=== PATIENT | female | born 1965 | race Caucasian/White ===

== ENCOUNTER 2020-01-13 18:24 | Emergency (ER) | payer MEDICAID ==
[2020-01-13 19:06] LABS: BASO % 0.1 % (0.0-1.0); HEMATOCRIT 48.4 % (36.0-47.0); HEMOGLOBIN 16.7 g/dl (12.0-15.5); LYMPH # 0.4 10^3/uL (1.5-5.0); LYMPH % 4.6 % (24.0-44.0); MEAN CORPUSCULAR HEMOGLOBIN 30.5 pg (27.0-33.0); MEAN CORPUSCULAR HGB CONC 34.5 g/dl (32.0-36.5); MEAN CORPUSCULAR VOLUME 88.3 fl (80.0-96.0); MONO # 0.7 10^3/uL (0.0-0.8); MONO % 8.6 % (0.0-5.0); NEUTROPHILS # 7.4 10^3/uL (1.5-8.5); NEUTROPHILS % 86.2 % (36.0-66.0); PLATELET COUNT, AUTOMATED 202 10^3/uL (150-450); RED BLOOD COUNT 5.48 10^6/uL (4.00-5.40); WHITE BLOOD COUNT 8.6 10^3/uL (4.0-10.0)
[2020-01-13 19:28] LABS: BLOOD UREA NITROGEN 7 MG/DL (7-18); CALCIUM LEVEL 9.2 MG/DL (8.5-10.1); CARBON DIOXIDE LEVEL 28 MEQ/L (21-32); CHLORIDE LEVEL 101 MEQ/L (98-107); CK-MB VALUE MASS < 1.0 NG/ML (<3.6); CPK CREATINE PHOSPHOKINASE 40 U/L (26-192); CREATININE FOR GFR 0.69 MG/DL (0.55-1.30); GLOMERULAR FILTRATION RATE > 60.0 (>51); GLUCOSE, FASTING 198 MG/DL (70-100); POTASSIUM SERUM 3.7 MEQ/L (3.5-5.1); SODIUM LEVEL 136 MEQ/L (136-145); TROPONIN I < 0.02 NG/ML (< 0.10)
[2020-01-13 19:34] LABS: INFLUENZA A AMPLIFICATION POSITIVE (NEGATIVE); INFLUENZA B AMPLIFICATION NEGATIVE (NEGATIVE)
[2020-01-13] MEDS ORDERED: IBUPROFEN 800 MG TAB PO ONE (19:45)
[2020-01-13] MEDS ORDERED: KETOROLAC 30 MG/ML VIAL (J1885) IV ONE (20:00)
[2020-01-13] MEDS ORDERED: ACETAMINOPHEN TAB 650MG DOSE (2X325MG) PO ONE (20:00)
[2020-01-13] MEDS ORDERED: METOCLOPRAMIDE INJ 10MG/2ML VIAL (J2765) IV ONE (20:00)
[2020-01-13] MEDS ORDERED: NS 500 ML IV ONE (20:00)
[2020-01-13] MEDS ORDERED: IPRATROPIUM 0.5MG/ALBUTEROL 2.5MG INH SOL UD 3ML (DUONEB)(J7620) NEB ONE (20:00)
--- NOTE | 2020-01-13 21:03 | ECGEPIP ---
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
[2020-01-13 21:45] VITALS: BP 102/54
[2020-01-13] MEDS ORDERED: REGL10TA6 PO (21:45)
[2020-01-13] MEDS ORDERED: OSEL75CA PO (21:45)
[2020-01-13] MEDS ORDERED: OSELTAMIVIR PHOSPHATE 75 MG CAP (TAMIFLU) PO ONE (21:45)
[2020-01-13] MEDS ORDERED: ALBUTEROL 90 MCG/ACT 8GM HFA INHALER INH ONE (21:45)
--- NOTE | 2020-01-14 08:07 | REP ---
No chest, 06:52 p.m., single AP view with the patient sitting: There are no comparisons. There is diffuse interstitial coarsening, acute versus chronic. There are no focal infiltrates or pleural effusions. Cardiac size is normal. The jon, mediastinum, skeletal structures are unremarkable except for a cervical spine stabilization plate. Impression: Interstitial coarsening, acute versus chronic. Electronically Signed by Keith Ferreira MD 01/14/2020 07:58 A
--- NOTE | 2020-01-14 11:15 | ED PDOC ---
Post-Departure Follow-Up dr allen faxed formal report of cxr fo rfu Montse Bobby MD Jan 14, 2020 11:15
== END 2020-01-13 22:12 | disposition home or self-care (01) ==
LOC: M ED 18:24
DX: J09.X2 Influenza due to identified novel influenza A virus with other respiratory manifestations (principal); E11.9 Type 2 diabetes mellitus without complications; F17.211 Nicotine dependence, cigarettes, in remission; Z88.1 Allergy status to other antibiotic agents
CPT/HCPCS: 71045; 80048; 82550; 82553; 85025; 87040; 87502; 93005; 93041; 94760; 96374; 96375; 99285; J1885; J2765

== ENCOUNTER → 2020-02-22 | Outpatient (CLI) | payer MEDICAID ==
[~2020-02-22] MED LIST: OSEL75CA PO; REGL10TA6 PO
--- NOTE | 2020-02-22 15:48 | REP ---
Chest x-ray: Two views. History: Cough. Comparison chest x-ray: January 13, 2020. Findings: The patient is status post lower cervical spine fusion. The lungs are symmetrically aerated and clear. Pleural angles are sharp. There are degenerative disc changes in the thoracic spine. Clips are noted in the right upper quadrant. Pulmonary vasculature is not increased. No infiltrate is seen. Impression: No acute disease. Status post lower cervical spine fusion and prior cholecystectomy. Electronically Signed by Manolo Mireles MD 02/22/2020 03:40 P
[2020-02-22 16:49] LABS: HEMOGLOBIN A1c 6.8 %
[2020-02-22 17:03] LABS: ALBUMIN 3.6 GM/DL (3.2-5.2); ALT/SGPT 18 U/L (12-78); BILIRUBIN,TOTAL 0.4 MG/DL (0.2-1.0); BLOOD UREA NITROGEN 8 MG/DL (7-18); CALCIUM LEVEL 9.6 MG/DL (8.5-10.1); CARBON DIOXIDE LEVEL 29 MEQ/L (21-32); CHLORIDE LEVEL 104 MEQ/L (98-107); CHOLESTEROL LEVEL 269 MG/DL (<200); CHOLESTEROL RISK RATIO 5.075 (<5); CREATININE FOR GFR 0.65 MG/DL (0.55-1.30); GLOMERULAR FILTRATION RATE > 60.0 (>51); GLUCOSE, FASTING 99 MG/DL (70-100); HDL CHOLESTEROL 53 MG/DL (>40); LDL CHOLESTEROL 181 MG/DL (<100); NON-HDL-C 216 MG/DL; SODIUM LEVEL 136 MEQ/L (136-145); THYROID STIMULATING HORMONE 0.628 uIU/ML (0.358-3.740); TOTAL PROTEIN 7.5 GM/DL (6.4-8.2); TRIGLYCERIDES LEVEL 174 MG/DL (<150)
== END ==
LOC: M WUC 15:03
PROVIDERS: ATTEND Internal Medicine
DX: Z00.00 Encounter for general adult medical examination without abnormal findings (principal); E78.5 Hyperlipidemia, unspecified; J44.9 Chronic obstructive pulmonary disease, unspecified; E11.9 Type 2 diabetes mellitus without complications; R05 Cough

== ENCOUNTER → 2020-07-03 | Outpatient (CLI) | payer OTHER ==
--- NOTE | 2020-09-01 07:59 | REP ---
CHEST X-RAY: 2-VIEWS COMPARISON: 02/22/20 FINDINGS: 2-views of the chest are performed. There is no acute infection. The heart is normal in size. There is mild calcification of the thoracic aorta. The mediastinal silhouette is unchanged. Metallic plate and screws are seen in the lower cervical spine. There are mild degenerative changes in the spine. IMPRESSION: No active pulmonary disease. MTDD
== END ==
LOC: M WUC 15:55
PROVIDERS: ATTEND Internal Medicine
DX: J44.1 Chronic obstructive pulmonary disease with (acute) exacerbation (principal)

== ENCOUNTER → 2021-05-11 | Outpatient (CLI) | payer OTHER ==
[2021-05-11 18:22] LABS: ALBUMIN 3.7 GM/DL (3.2-5.2); ALT/SGPT 25 U/L (12-78); BILIRUBIN,TOTAL 0.3 MG/DL (0.2-1.0); BLOOD UREA NITROGEN 10 MG/DL (7-18); CALCIUM LEVEL 9.6 MG/DL (8.5-10.1); CARBON DIOXIDE LEVEL 24 MEQ/L (21-32); CHLORIDE LEVEL 104 MEQ/L (98-107); CREATININE FOR GFR 0.81 MG/DL (0.55-1.30); GLOMERULAR FILTRATION RATE > 60.0 (>51); GLUCOSE, FASTING 155 MG/DL (70-100); POTASSIUM SERUM 4.2 MEQ/L (3.5-5.1); SODIUM LEVEL 138 MEQ/L (136-145); TOTAL PROTEIN 7.3 GM/DL (6.4-8.2)
== END ==
LOC: M WUC 14:19
PROVIDERS: ATTEND Internal Medicine
DX: E11.9 Type 2 diabetes mellitus without complications (principal)

== ENCOUNTER → 2021-07-18 | Outpatient (CLI) | payer OTHER ==
[~2021-07-18] MED LIST changes: +ATOR1TAB21 PO; +FLUT1BLS IH; +FLUTISP; +GABA600T4 PO; +JANU100T PO; +LINZ290C PO; +METF850T4 PO; +PROAAER10 INH; +TRAZ-189 PO; +VENL75TA2 PO; +ZOFR4TAB16 PO
== END ==
LOC: M LABSMTC 09:22
PROVIDERS: ATTEND Anesthesiology
DX: Z01.812 Encounter for preprocedural laboratory examination (principal); Z20.822 Contact with and (suspected) exposure to COVID-19

== ENCOUNTER 2021-07-23 06:46 | Day surgery (SDC) | payer OTHER ==
[~2021-07-23] VITALS: Ht 162.6 cm; Wt 90.3 kg
[~2021-07-23 06:46] MED LIST changes: +NS 1,000 ML IV ONE
[2021-07-23] MEDS ORDERED: LIDOCAINE 2% 100MG/5ML SDV (FOR ANES.) As Ordered ONE (07:22)
[2021-07-23] MEDS ORDERED: propofoL 200 MG/20 ML VIAL As Ordered ONE ×2 (07:22→08:31)
--- NOTE | 2021-07-23 08:14 | ROOR ---
Patient Name: Olamide Galloway Procedure Date: 07/23/2021 8:01 AM Date of : 1965 Age: 55 Room: [facility] Gender: Female Note Status: Finalized Procedure: Upper GI endoscopy Indications: Suspected gastroparesis, Eructation, Regurgitation Providers: Inder Patel MD Referring MD: CJ BAUTISTA MD Requesting Provider: Medicines: Monitored Anesthesia Care Complications: No immediate complications. Procedure: Pre-Anesthesia Assessment: - The heart rate, respiratory rate, oxygen saturations, blood pressure, adequacy of pulmonary ventilation, and response to care were monitored throughout the procedure. The Endoscope was introduced through the mouth, and advanced to the second part of duodenum. The upper GI endoscopy was accomplished without difficulty. The patient tolerated the procedure well. Findings: Very small (insignificant) Hiatal Hernia. The exam was otherwise without abnormality. Impression: - Very small (insignificant) Hiatal Hernia. - The examination was otherwise normal. - No specimens collected. Recommendation: - Gastroparesis diet: - Eat smaller, more frequent meals throughout the day. - Low fat diet. - Liquid/soft foods are tolerated better than solid foods. - Low fiber/well cooked vegetables are tolerated better than high fiber/fibrous foods/raw vegetables. - Avoid medications that inhibit gastric/intestinal motility such as narcotic medications. Procedure Code(s): --- Professional --- 01791, Esophagogastroduodenoscopy, flexible, transoral; diagnostic, including collection of specimen(s) by brushing or washing, when performed (separate procedure) Diagnosis Code(s): --- Professional --- R11.10, Vomiting, unspecified R14.2, Eructation CPT copyright 2019 [employer]. All rights reserved. The codes documented in this report are preliminary and upon babbitt spinner review may be revised to meet current compliance requirements. Inder Patel MD Inder Patel MD 07/23/2021 8:13:25 AM Electronically signed by Inder Patel MD Number of Addenda: 0 Note Initiated On: 07/23/2021 8:01 AM Estimated Blood Loss: Estimated blood loss: none.
--- NOTE | 2021-07-23 08:43 | ROOR ---
Patient Name: Olamide Galloway Procedure Date: 07/23/2021 8:01 AM Date of : 1965 Age: 55 Room: [facility] Gender: Female Note Status: Finalized Procedure: Colonoscopy Indications: High risk colon cancer surveillance: Personal history of colonic polyps Providers: Inder Patel MD Referring MD: CJ BAUTISTA MD Requesting Provider: Medicines: Monitored Anesthesia Care Complications: No immediate complications. Procedure: Pre-Anesthesia Assessment: - The heart rate, respiratory rate, oxygen saturations, blood pressure, adequacy of pulmonary ventilation, and response to care were monitored throughout the procedure. The Colonoscope was introduced through the anus and advanced to the terminal ileum, with identification of the appendiceal orifice and IC valve. The colonoscopy was performed without difficulty. The quality of the bowel preparation was fair. Findings: The perianal and digital rectal examinations were normal. A 5 mm polyp was found in the transverse colon. The polyp was sessile. The polyp was removed with a cold snare. Resection and retrieval were complete. Mild sigmoid diverticulosis and small internal hemorrhoids. Impression: - Preparation of the colon was fair. - One 5 mm polyp in the transverse colon, removed with a cold snare. Resected and retrieved. - Mild sigmoid diverticulosis and small internal hemorrhoids. Recommendation: - Repeat colonoscopy in 3 years for surveillance and for slightly suboptimal prep in sigmoid area. Procedure Code(s): --- Professional --- 81971, Colonoscopy, flexible; with removal of tumor(s), polyp(s), or other lesion(s) by snare technique Diagnosis Code(s): --- Professional --- K63.5, Polyp of colon Z86.010, Personal history of colonic polyps CPT copyright 2019 [employer]. All rights reserved. The codes documented in this report are preliminary and upon web feeder review may be revised to meet current compliance requirements. Inder Patel MD Inder Patel MD 07/23/2021 8:42:58 AM Electronically signed by Inder Patel MD Number of Addenda: 0 Note Initiated On: 07/23/2021 8:01 AM Estimated Blood Loss: Estimated blood loss: none.
[2021-07-23 09:03] VITALS: BP 105/55
== END 2021-07-23 09:06 | disposition home or self-care (01) ==
LOC: M OPP 06:46
PROVIDERS: ATTEND Internal Medicine Gastroenterology
DX: Z12.11 Encounter for screening for malignant neoplasm of colon (principal); Z86.010 Personal history of colon polyps; D12.3 Benign neoplasm of transverse colon; K57.30 Diverticulosis of large intestine without perforation or abscess without bleeding; K64.8 Other hemorrhoids; R11.10 Vomiting, unspecified; R14.2 Eructation; Z79.84 Long term (current) use of oral hypoglycemic drugs; Z79.899 Other long term (current) drug therapy; F17.210 Nicotine dependence, cigarettes, uncomplicated

== ENCOUNTER → 2021-10-12 | Outpatient (CLI) | payer OTHER ==
[~2021-10-12] MED LIST changes: -NS 1,000 ML IV ONE
--- NOTE | 2021-10-12 16:14 | REP ---
INDICATION: NEOPLASM OF UNCERTAIN BEHAVIOR OF THYROID GLAND. COMPARISON: 05/14/2020. TECHNIQUE: Real-time sonographic evaluation of thyroid performed. FINDINGS: A few scattered cysts are seen in the right lobe of the thyroid, the largest measures 6 x 5 x 4 mm. In the left isthmus there is an oval hypoechoic nodule which measures 6 x 4 x 3 mm, not significantly changed. A cyst in the left lobe measures 7 x 4 x 7 mm. An oval hypoechoic nodular area in the mid to lower left lobe measures 1.6 x 0.5 x 1.3 cm. This is essentially a unchanged. Other ill-defined hypoechoic areas in the left lobe appear similar to the prior exam. IMPRESSION: Essentially stable exam. <Electronically signed by Keith Jordan > 10/12/21 [id number]
== END ==
LOC: M WHC 15:12
PROVIDERS: ATTEND Internal Medicine
DX: E04.1 Nontoxic single thyroid nodule (principal)

== ENCOUNTER → 2021-11-17 | Outpatient (CLI) | payer OTHER | LOC: M WHC 15:56 | PROVIDERS: ATTEND Internal Medicine | DX: Z12.31 Encounter for screening mammogram for malignant neoplasm of breast (principal) ==

== ENCOUNTER → 2021-11-20 | Outpatient (REF) | LOC: M LABSMTC 09:01 | PROVIDERS: ATTEND Pediatrics | DX: Z11.52 Encounter for screening for COVID-19 (principal) ==

== ENCOUNTER 2022-06-16 13:03 | Emergency (ER) | payer OTHER ==
[~2022-06-16] VITALS: Ht 165.1 cm; Wt 86.4 kg
[~2022-06-16 13:03] MED LIST changes: -FLUT1BLS IH; +FLUT1BLS INH; -FLUTISP; +FLUTISP NARES
[2022-06-16] MEDS ORDERED: DULO1CAP6 PO (13:31)
[2022-06-16 14:37] LABS: BASO # 0.1 10^3/uL (0.0-0.2); BASO % 0.5 % (0.0-1.0); EOS # 0.2 10^3/uL (0.0-0.5); EOS % 1.8 % (0.0-3.0); HEMATOCRIT 46.1 % (36.0-47.0); HEMOGLOBIN 15.4 g/dl (12.0-15.5); LYMPH # 1.8 10^3/uL (1.5-5.0); LYMPH % 17.6 % (24.0-44.0); MEAN CORPUSCULAR HEMOGLOBIN 29.4 pg (27.0-33.0); MEAN CORPUSCULAR HGB CONC 33.4 g/dl (32.0-36.5); MEAN CORPUSCULAR VOLUME 88.1 fl (80.0-96.0); MONO # 0.5 10^3/uL (0.0-0.8); NEUTROPHILS # 7.6 10^3/uL (1.5-8.5); NEUTROPHILS % 74.8 % (36.0-66.0); PLATELET COUNT, AUTOMATED 323 10^3/uL (150-450); RED BLOOD COUNT 5.23 10^6/uL (4.00-5.40); WHITE BLOOD COUNT 10.2 10^3/uL (4.0-10.0)
[2022-06-16] MEDS ORDERED: NS 1,000 ML IV ONE (15:00)
[2022-06-16] MEDS ORDERED: MORPHINE 4 MG/ML 1ML VIAL/SYRINGE IV ONE (15:05)
[2022-06-16] MEDS ORDERED: ONDANSETRON 4MG 2ML VIAL IV ONE (15:05)
[2022-06-16 15:10] LABS: ALBUMIN 3.7 GM/DL (3.2-5.2); ALT/SGPT 16 U/L (12-78); BILIRUBIN,DIRECT < 0.1 MG/DL (0.0-0.2); BILIRUBIN,TOTAL 0.3 MG/DL (0.2-1.0); BLOOD UREA NITROGEN 10 MG/DL (7-18); CALCIUM LEVEL 10.2 MG/DL (8.5-10.1); CARBON DIOXIDE LEVEL 26 MEQ/L (21-32); CHLORIDE LEVEL 105 MEQ/L (98-107); CREATININE FOR GFR 0.97 MG/DL (0.55-1.30); GLOMERULAR FILTRATION RATE > 60.0 (>51); GLUCOSE, FASTING 109 MG/DL (70-100); LIPASE 389 U/L (73-393); POTASSIUM SERUM 4.7 MEQ/L (3.5-5.1); SODIUM LEVEL 139 MEQ/L (136-145); TOTAL PROTEIN 7.8 GM/DL (6.4-8.2)
[2022-06-16] MEDS ORDERED: ISOVUE-370 76% 100ML VIAL As Ordered ONE (15:43)
[2022-06-16] MEDS ORDERED: PROM25TA12 PO (17:54)
[2022-06-16] MEDS ORDERED: DICY10CA13 PO (17:54)
[2022-06-16] MEDS ORDERED: PROMETHAZINE 25 MG TAB PO ONE (17:55)
[2022-06-16] MEDS ORDERED: DICYCLOMINE 10 MG CAP PO ONE (17:55)
[2022-06-16 18:04] VITALS: BP 138/66
== END 2022-06-16 19:08 | disposition home or self-care (01) ==
LOC: M ED 13:03
DX: K52.9 Noninfective gastroenteritis and colitis, unspecified (principal); E11.9 Type 2 diabetes mellitus without complications; Z87.19 Personal history of other diseases of the digestive system; Z79.899 Other long term (current) drug therapy; Z79.84 Long term (current) use of oral hypoglycemic drugs
CPT/HCPCS: 74177; 80048; 80076; 81001; 83690; 85025; 96361; 96374; 96375; 99284; J2270; J2405; Q9967

== ENCOUNTER 2022-06-20 13:46 | Inpatient (IN) | payer OTHER ==
[~2022-06-20 13:46] MED LIST changes: +ASPIRIN 81 MG CHEW TABLET PO SCH; +DICY10CA13 PO; +DULO1CAP6 PO; +PROM25TA12 PO
[2022-06-20] MEDS ORDERED: ISOVUE-370 76% 100ML VIAL As Ordered ONE (14:11)
[2022-06-20 14:17] LABS: BASO # 0.1 10^3/uL (0.0-0.2); BASO % 0.6 % (0.0-1.0); EOS # 0.2 10^3/uL (0.0-0.5); EOS % 2.4 % (0.0-3.0); HEMATOCRIT 46.6 % (36.0-47.0); HEMOGLOBIN 15.8 g/dl (12.0-15.5); LYMPH # 2.4 10^3/uL (1.5-5.0); LYMPH % 23.8 % (24.0-44.0); MEAN CORPUSCULAR HEMOGLOBIN 29.8 pg (27.0-33.0); MEAN CORPUSCULAR HGB CONC 33.9 g/dl (32.0-36.5); MEAN CORPUSCULAR VOLUME 87.8 fl (80.0-96.0); MONO # 0.7 10^3/uL (0.0-0.8); MONO % 6.7 % (2.0-8.0); NEUTROPHILS # 6.7 10^3/uL (1.5-8.5); NEUTROPHILS % 66.2 % (36.0-66.0); PLATELET COUNT, AUTOMATED 304 10^3/uL (150-450); RED BLOOD COUNT 5.31 10^6/uL (4.00-5.40); WHITE BLOOD COUNT 10.1 10^3/uL (4.0-10.0)
[2022-06-20 14:20] VITALS: BP 140/74
[2022-06-20 14:28] LABS: PARTIAL THROMBOPLASTIN TIME 27.9 SECONDS (25.9-37.0)
[2022-06-20] MEDS ORDERED: ATOR40TA75 PO (14:28)
[2022-06-20 14:30] VITALS: BP 125/72
[2022-06-20 14:34] LABS: CK-MB VALUE MASS < 1.0 NG/ML (<3.6); CPK CREATINE PHOSPHOKINASE 37 U/L (26-192)
[2022-06-20 14:45] VITALS: BP_SYST 129; BP_SYST 76; BP_DIAS 76
[2022-06-20 15:00] VITALS: BP 130/76
[2022-06-20] MEDS ORDERED: PERCOCET 5MG/325MG TAB PO ONE (15:05)
[2022-06-20] MEDS ORDERED: ONDANSETRON 4MG 2ML VIAL IV ONE (15:05)
[2022-06-20 15:11] LABS: INR 0.96; PROTHROMBIN TIME 13.1 SECONDS (12.7-14.5)
[2022-06-20 15:14] LABS: RSV AMPLIFICATION NEGATIVE (NEGATIVE)
[2022-06-20 15:15] VITALS: BP 134/75
[2022-06-20] MEDS ORDERED: DEXTROSE 50% 50 ML SYRINGE IV PRN (15:55)
[2022-06-20] MEDS ORDERED: GLUCOSE 4GM CHEW TABLET PO PRN (15:55)
[2022-06-20] MEDS ORDERED: GLUCAGON INJ 1MG VIAL SC PRN (15:55)
[2022-06-20] MEDS ORDERED: NICOTINE 14 MG/24 HR TRANSDERMAL TD ONE (15:55)
[2022-06-20 16:20] LABS: HEMOGLOBIN A1c 6.4 %
[2022-06-20] MEDS ORDERED: ONDA8TAB8 PO (16:42)
[2022-06-20] MEDS ORDERED: HOME MED LIST COMPLETE! XX SCH (16:45)
[2022-06-20] MEDS ORDERED: INSULIN LISPRO (NovoLOG) PER UNIT SC SCH ×2 (17:30→21:00)
[2022-06-20 18:31] VITALS: BP 153/86
[2022-06-21] MEDS ORDERED: CLOPIDOGREL 75 MG TAB PO SCH (09:00)
== END 2022-06-20 20:17 | disposition left against medical advice (07) | DRG 47 ==
LOC: EDBD 13:46 → M ED 13:46 → M ED INP 15:52 → ENRESERV 16:07 → M PCU 20:16
PROVIDERS: ADMIT Family Medicine; ATTEND Family Medicine
DX: G45.9 Transient cerebral ischemic attack, unspecified (principal); E11.43 Type 2 diabetes mellitus with diabetic autonomic (poly)neuropathy; K31.84 Gastroparesis; E78.5 Hyperlipidemia, unspecified; M54.2 Cervicalgia; J45.909 Unspecified asthma, uncomplicated; F41.9 Anxiety disorder, unspecified; F32.A Depression, unspecified; G43.909 Migraine, unspecified, not intractable, without status migrainosus; F17.210 Nicotine dependence, cigarettes, uncomplicated; Z90.49 Acquired absence of other specified parts of digestive tract; Z79.84 Long term (current) use of oral hypoglycemic drugs; Z79.899 Other long term (current) drug therapy

== ENCOUNTER → 2022-10-19 | Outpatient (CLI) | payer OTHER ==
[~2022-10-19] MED LIST changes: -ASPIRIN 81 MG CHEW TABLET PO SCH; +ATOR40TA75 PO; +ONDA8TAB8 PO
[2022-10-19 19:36] LABS: CREATININE FOR GFR 0.86 MG/DL (0.55-1.30); GLOMERULAR FILTRATION RATE > 60.0 (>51)
[2022-10-19 19:40] LABS: BLOOD UREA NITROGEN 11 MG/DL (9-23)
== END ==
LOC: M WUC 15:14
PROVIDERS: ATTEND Psychiatry & Neurology Neurology
DX: I10 Essential (primary) hypertension (principal)

== ENCOUNTER → 2022-10-19 | Outpatient (CLI) | payer OTHER ==
[2022-10-19 19:35] LABS: CHLORIDE LEVEL 99 MMOL/L (98-107); POTASSIUM SERUM 4.4 MMOL/L (3.5-5.1); SODIUM LEVEL 136 MMOL/L (136-145)
[2022-10-19 19:36] LABS: ALBUMIN 3.5 G/DL (3.2-5.2); CARBON DIOXIDE LEVEL 28 MMOL/L (20-31)
[2022-10-19 19:38] LABS: HEMOGLOBIN A1c 5.7 % (4.0-6.0)
[2022-10-19 19:41] LABS: BLOOD UREA NITROGEN 11 MG/DL (9-23); CALCIUM LEVEL 9.4 MG/DL (8.5-10.1); GLUCOSE, FASTING 110 MG/DL (60-100); TRIGLYCERIDES LEVEL 144 MG/DL (<150)
[2022-10-19 19:43] LABS: ALT/SGPT 11 U/L (7.0-40); BILIRUBIN,TOTAL 0.2 MG/DL (0.3-1.2); CHOLESTEROL LEVEL 154 MG/DL (<200); CHOLESTEROL RISK RATIO 3.13 (<5); CREATININE FOR GFR 0.84 MG/DL (0.55-1.30); GLOMERULAR FILTRATION RATE > 60.0 (>51); HDL CHOLESTEROL 49.2 MG/DL (>40); NON-HDL-C 105 MG/DL; TOTAL PROTEIN 7.3 G/DL (5.7-8.2)
== END ==
LOC: M WUC 15:10
PROVIDERS: ATTEND Internal Medicine
DX: E78.5 Hyperlipidemia, unspecified (principal); E11.9 Type 2 diabetes mellitus without complications

== ENCOUNTER → 2022-12-08 | Outpatient (CLI) | payer OTHER | LOC: M PAIN 15:00 | PROVIDERS: ATTEND Anesthesiology | DX: M54.2 Cervicalgia (principal); M79.10 Myalgia, unspecified site; R42 Dizziness and giddiness; M79.18 Myalgia, other site; M96.1 Postlaminectomy syndrome, not elsewhere classified; E11.9 Type 2 diabetes mellitus without complications; F17.200 Nicotine dependence, unspecified, uncomplicated; Z79.84 Long term (current) use of oral hypoglycemic drugs; Z79.899 Other long term (current) drug therapy ==

== ENCOUNTER → 2023-01-18 | Outpatient (CLI) | payer OTHER ==
[2023-01-18 19:44] LABS: ALBUMIN 3.6 G/DL (3.2-5.2); ALKALINE PHOSPHATASE 76 U/L (46-116); ALT/SGPT 13 U/L (7.0-40); AST/SGOT 16 U/L (<34); BILIRUBIN,TOTAL 0.2 MG/DL (0.3-1.2); BLOOD UREA NITROGEN 10 MG/DL (9-23); CALCIUM LEVEL 9.3 MG/DL (8.5-10.1); CARBON DIOXIDE LEVEL 30 MMOL/L (20-31); CHLORIDE LEVEL 103 MMOL/L (98-107); CHOLESTEROL LEVEL 150 MG/DL (<200); CHOLESTEROL RISK RATIO 3.28 (<5); CREATININE FOR GFR 0.77 MG/DL (0.55-1.30); GLOMERULAR FILTRATION RATE > 60.0 (>51); GLUCOSE, FASTING 113 MG/DL (60-100); HDL CHOLESTEROL 45.7 MG/DL (>40); LDL CHOLESTEROL 66.9 MG/DL (<100); NON-HDL-C 104 MG/DL; POTASSIUM SERUM 4.5 MMOL/L (3.5-5.1); SODIUM LEVEL 138 MMOL/L (136-145); TOTAL PROTEIN 7.2 G/DL (5.7-8.2); TRIGLYCERIDES LEVEL 187 MG/DL (<150)
[2023-01-18 19:58] LABS: CREATININE, URINE 313.7 MG/DL; MAU/CREAT RATIO 33.7 MCG/MG (0.0-30.0)
[2023-01-18 20:28] LABS: HEMOGLOBIN A1c 7.5 % (4.0-6.0)
== END ==
LOC: M WUC 15:32
PROVIDERS: ATTEND Internal Medicine
DX: E78.5 Hyperlipidemia, unspecified (principal); E11.9 Type 2 diabetes mellitus without complications

== ENCOUNTER → 2024-04-10 | Outpatient (CLI) | payer OTHER ==
[~2024-04-10] MED LIST changes: +DICY-61 PO; -DICY10CA13 PO
[2024-04-10 20:37] LABS: HEMOGLOBIN A1c 8.3 % (4.0-6.0)
[2024-04-10 20:48] LABS: CREATININE, URINE 168.6 MG/DL
[2024-04-10 20:51] LABS: ALBUMIN 3.7 G/DL (3.2-5.2); ALKALINE PHOSPHATASE 77 U/L (46-116); ALT/SGPT 10 U/L (7.0-40); AST/SGOT 10 U/L (<34); BILIRUBIN,TOTAL 0.2 MG/DL (0.3-1.2); BLOOD UREA NITROGEN 7 MG/DL (9-23); CALCIUM LEVEL 9.6 MG/DL (8.5-10.1); CARBON DIOXIDE LEVEL 28 MMOL/L (20-31); CHLORIDE LEVEL 102 MMOL/L (98-107); CHOLESTEROL LEVEL 148 MG/DL (<200); CHOLESTEROL RISK RATIO 3.06 (<5); CREATININE FOR GFR 0.73 MG/DL (0.55-1.30); GLOMERULAR FILTRATION RATE > 60.0 (>51); GLUCOSE, FASTING 127 MG/DL (60-100); HDL CHOLESTEROL 48.3 MG/DL (>40); LDL CHOLESTEROL 61.1 MG/DL (<100); NON-HDL-C 99.7 MG/DL; POTASSIUM SERUM 4.5 MMOL/L (3.5-5.1); SODIUM LEVEL 135 MMOL/L (136-145); THYROID STIMULATING HORMONE 0.953 uIU/ML (0.55-4.78); TOTAL PROTEIN 7.5 G/DL (5.7-8.2); TRIGLYCERIDES LEVEL 193 MG/DL (<150)
== END ==
LOC: M WUC 15:37
PROVIDERS: ATTEND Internal Medicine
DX: E78.5 Hyperlipidemia, unspecified (principal); E11.9 Type 2 diabetes mellitus without complications

== ENCOUNTER → 2025-01-16 | Outpatient (CLI) | payer BC ==
[~2025-01-16] MED LIST changes: +GABA-1490 PO; -GABA600T4 PO; +ONDA-284 PO; -ONDA8TAB8 PO
[2025-01-16 14:00] LABS: HEMOGLOBIN A1c 6.5 % (4.0-6.0)
[2025-01-16 14:27] LABS: ALBUMIN 3.9 G/DL (3.2-5.2); ALKALINE PHOSPHATASE 63 U/L (35-104); ALT/SGPT 12 U/L (7.0-40); AST/SGOT 18 U/L (<34); BILIRUBIN,TOTAL 0.2 MG/DL (0.3-1.2); BLOOD UREA NITROGEN 11 MG/DL (9-23); CALCIUM LEVEL 9.8 MG/DL (8.5-10.1); CARBON DIOXIDE LEVEL 27 MMOL/L (20-31); CHLORIDE LEVEL 103 MMOL/L (98-107); CHOLESTEROL LEVEL 139 MG/DL (<200); CHOLESTEROL RISK RATIO 2.95 (<5); GLOMERULAR FILTRATION RATE > 60.0 (>51); GLUCOSE, FASTING 187 MG/DL (60-100); LDL CHOLESTEROL 57.2 MG/DL (<100); POTASSIUM SERUM 5.3 MMOL/L (3.5-5.1); SODIUM LEVEL 137 MMOL/L (136-145); TOTAL PROTEIN 7.6 G/DL (5.7-8.2); TRIGLYCERIDES LEVEL 174 MG/DL (<150)
== END ==
LOC: M WUC 10:12
PROVIDERS: ATTEND Internal Medicine
DX: E78.5 Hyperlipidemia, unspecified (principal); G45.9 Transient cerebral ischemic attack, unspecified; E11.9 Type 2 diabetes mellitus without complications

== ENCOUNTER → 2025-03-01 | Outpatient (CLI) | payer BC | LOC: M WHC 14:47 | PROVIDERS: ATTEND Internal Medicine | DX: Z12.31 Encounter for screening mammogram for malignant neoplasm of breast (principal) ==

== ENCOUNTER → 2025-06-19 | Outpatient (CLI) | payer BC ==
[2025-06-19] MEDS: LIDOCAINE 1% MDV 20 ML VIAL SC SCH (14:35)
[2025-06-19 14:55] VITALS: TEMP 98.7
[2025-06-19 15:18] VITALS: BP 154/72; O2SAT 93
== END ==
LOC: M IRPRO 14:42
PROVIDERS: ATTEND Nurse Practitioner Family
DX: E04.2 Nontoxic multinodular goiter (principal)

== ENCOUNTER 2025-08-19 06:29 | Day surgery (SDC) | payer BC ==
[~2025-08-19] VITALS: Ht 162.6 cm; Wt 73.2 kg
[~2025-08-19 06:29] MED LIST changes: +PROA1AER2 IN
[2025-08-19] MEDS: ALBUTEROL SULFATE 2.5 MG/0.5 ML INH CONCENTRATE NEB SOLN NEB STA (07:03)
[2025-08-19] MEDS ORDERED: LIDOCAINE 2% 100 MG/5 ML SDV (FOR ANES.) As Ordered ONE (07:37)
[2025-08-19] MEDS ORDERED: GLYCOPYRROLATE INJ 0.2 MG/ML 2 ML VIAL As Ordered ONE (07:37)
[2025-08-19] MEDS ORDERED: LABETALOL 100 MG/20 ML VIAL As Ordered ONE (07:55)
[2025-08-19 07:57] VITALS: TEMP 98.2
[2025-08-19 08:07] VITALS: BP 121/62; O2SAT 95
== END 2025-08-19 08:13 | disposition home or self-care (01) ==
LOC: M OPP 06:29
PROVIDERS: ATTEND Internal Medicine Gastroenterology
DX: D12.0 Benign neoplasm of cecum (principal); K64.8 Other hemorrhoids; K64.4 Residual hemorrhoidal skin tags; K57.30 Diverticulosis of large intestine without perforation or abscess without bleeding; Z80.0 Family history of malignant neoplasm of digestive organs; Z86.0100 Personal history of colon polyps, unspecified; Z79.51 Long term (current) use of inhaled steroids; Z79.84 Long term (current) use of oral hypoglycemic drugs; Z79.899 Other long term (current) drug therapy; F17.210 Nicotine dependence, cigarettes, uncomplicated; Z86.73 Personal history of transient ischemic attack (TIA), and cerebral infarction without residual deficits; J44.9 Chronic obstructive pulmonary disease, unspecified
CPT/HCPCS: 45385; 88305; J1596; J1920

== ENCOUNTER 2025-09-20 10:41 | Inpatient (IN) | payer BC ==
[~2025-09-20] VITALS: Ht 162.6 cm; Wt 71.9 kg
[~2025-09-20 10:41] MED LIST changes: -PROA1AER2 IN; +PROA1AER2 INH
[2025-09-20] MEDS ORDERED: ZOLO100T (10:53)
[2025-09-20 12:40] LABS: BASO # 0.0 10^3/uL (0.0-0.2); BASO % 0.3 % (0.0-1.0); EOS # 0.0 10^3/uL (0.0-0.5); EOS % 0.2 % (0.0-3.0); LYMPH # 0.9 10^3/uL (1.5-5.0); LYMPH % 8.1 % (24.0-44.0); MONO # 0.3 10^3/uL (0.0-0.8); MONO % 2.7 % (2.0-8.0); NEUTROPHILS # 10.0 10^3/uL (1.5-8.5); NEUTROPHILS % 88.5 % (36.0-66.0); PLATELET COUNT, AUTOMATED 305 10^3/uL (150-450)
[2025-09-20 12:41] LABS: KETONE, URINE AUTO RFX 1+ mg/dL (NEGATIVE); LEUKOCYTE ESTERASE UR AUTO RFX NEGATIVE (NEGATIVE); NITRITE, URINE AUTO RFX NEGATIVE (NEGATIVE); RBC, URINE AUTO RFX 2 /HPF (0-3); SQUAM EPITHELIAL CELL UR AURFX 0 /HPF (0-6); WBC, URINE AUTO RFX 1 /HPF (0-3)
[2025-09-20] MEDS: ONDANSETRON 4MG/2ML VIAL IV ONE (13:02)
[2025-09-20] MEDS: NS (Normal Saline) 0.9% 1,000 ML IV ONE ×3 (13:03→17:28)
[2025-09-20] MEDS: MORPHINE 4 MG/ML 1 ML VIAL IV ONE (13:03)
[2025-09-20 13:06] LABS: ALT/SGPT 13 U/L (7.0-40); AST/SGOT 16 U/L (<34); CALCIUM LEVEL 10.4 MG/DL (8.5-10.1); CARBON DIOXIDE LEVEL 20 MMOL/L (20-31); CHLORIDE LEVEL 103 MMOL/L (98-107); CREATININE FOR GFR 0.66 MG/DL (0.55-1.30); GLOMERULAR FILTRATION RATE > 90.0 (>51); POTASSIUM SERUM 4.7 MMOL/L (3.5-5.1); SODIUM LEVEL 138 MMOL/L (136-145)
[2025-09-20] MEDS ORDERED: ISOVUE-370 76% 100 ML VIAL As Ordered ONE (13:38)
[2025-09-20] MEDS: PIPERACILLIN/TAZOBACTAM SOD 3.375 GM in DEXTROSE 5% (D5W) ADV/MINI-BAG 50 ML IV ONE (14:18)
[2025-09-20] MEDS: PANTOPRAZOLE 40MG VIAL IV ONE (14:18)
[2025-09-20] MEDS: HYDROMORPHONE HCL 0.5 MG/0.5 ML SYRINGE IV ONE (14:19)
[2025-09-20 14:58] LABS: CK-MB VALUE MASS < 1.0 NG/ML (<3.6); CPK CREATINE PHOSPHOKINASE 33 U/L (34-145)
[2025-09-20] MEDS ORDERED: ASPI81TA26 PO (15:13)
[2025-09-20] MEDS ORDERED: HOME MED LIST COMPLETE! XX SCH (15:15)
[2025-09-20] MEDS: NS (Normal Saline) 0.9% 1,000 ML IV SCH (16:30)
[2025-09-20] MEDS ORDERED: ONDANSETRON 4MG/2ML VIAL IV PRN (16:35)
[2025-09-20] MEDS ORDERED: MORPHINE 4 MG/ML 1 ML VIAL IV PRN (16:35)
[2025-09-20] MEDS ORDERED: GLUCOSE 4 GM CHEW PO PRN (16:40)
[2025-09-20] MEDS ORDERED: DEXTROSE 50% 50 ML SYRINGE IV PRN (16:40)
[2025-09-20] MEDS ORDERED: GLUCAGON INJ 1 MG VIAL SC PRN (16:40)
[2025-09-20] MEDS: ASPIRIN 81 MG ENTERIC TABLET PO SCH (17:23)
[2025-09-20] MEDS: ATORVASTATIN 20 MG TAB PO SCH (17:23)
[2025-09-20] MEDS: MORPHINE 4 MG/ML 1 ML VIAL IV PRN (17:23)
[2025-09-20] MEDS: INSULIN LISPRO (NovoLOG) PER UNIT SC SCH ×2 (17:30→21:31)
[2025-09-20] MEDS: DICYCLOMINE 10 MG CAP PO PRN (17:33)
[2025-09-20] MEDS: GABAPENTIN 300 MG CAP PO SCH (21:25)
[2025-09-20] MEDS: traZODone 100 MG TAB PO SCH (21:25)
[2025-09-20] MEDS: SERTRALINE 100 MG TAB PO SCH (21:25)
[2025-09-20 21:52] VITALS: BP 167/78; TEMP 98.8; O2SAT 96
[2025-09-20] MEDS: PIPERACILLIN/TAZOBACTAM SOD 3.375 GM in DEXTROSE 5% (D5W) ADV/MINI-BAG 50 ML IV SCH (22:03)
[2025-09-21] VITALS (7 sets, daily range): BP systolic 130–173; BP diastolic 60–90; TEMP 97.9–98.7; O2SAT 93–97
[2025-09-21 05:55] LABS: BASO # 0.0 10^3/uL (0.0-0.2); BASO % 0.2 % (0.0-1.0); EOS # 0.0 10^3/uL (0.0-0.5); EOS % 0.2 % (0.0-3.0); LYMPH # 1.4 10^3/uL (1.5-5.0); LYMPH % 12.2 % (24.0-44.0); MONO # 1.1 10^3/uL (0.0-0.8); MONO % 9.5 % (2.0-8.0); NEUTROPHILS # 9.0 10^3/uL (1.5-8.5); NEUTROPHILS % 77.6 % (36.0-66.0); PLATELET COUNT, AUTOMATED 288 10^3/uL (150-450)
[2025-09-21 06:21] LABS: CALCIUM LEVEL 8.4 MG/DL (8.5-10.1); CARBON DIOXIDE LEVEL 24 MMOL/L (20-31); CHLORIDE LEVEL 106 MMOL/L (98-107); CREATININE FOR GFR 0.72 MG/DL (0.55-1.30); GLOMERULAR FILTRATION RATE > 90.0 (>51); MAGNESIUM LEVEL 1.3 MG/DL (1.8-2.4); POTASSIUM SERUM 3.4 MMOL/L (3.5-5.1); SODIUM LEVEL 140 MMOL/L (136-145)
[2025-09-21] MEDS ORDERED: KCL 10MEQ/100ML SWI (KRUN) 10 MEQ in IV 1 EA IV ONE (08:00)
[2025-09-21] MEDS ORDERED: MAG SULF 1GM/100ML (MAG RUN) 1 GM in IV 1 EA IV SCH (08:00)
[2025-09-21] MEDS: ACETAMINOPHEN 325 MG TAB PO PRN (08:05)
[2025-09-21] MEDS: amLODIPine 5 MG TAB PO SCH (08:36)
[2025-09-21] MEDS: ENOXAPARIN 40 MG/0.4 ML SYRINGE (J1650 PER 10MG) SC SCH (08:37)
[2025-09-21] MEDS: KCL 10MEQ/100ML SWI (KRUN) 10 MEQ in IV 1 EA IV ONE (10:12)
[2025-09-21] MEDS: MAG SULF 1GM/100ML (MAG RUN) 1 GM in IV 1 EA IV SCH (11:30)
[2025-09-21] MEDS ORDERED: OXYC-517 PO (12:46)
[2025-09-21] MEDS ORDERED: METR-265 PO (12:46)
[2025-09-21] MEDS ORDERED: AMLO1TAB24 PO (12:46)
[2025-09-21] MEDS ORDERED: CIPR-249 PO (12:46)
== END 2025-09-21 16:41 | disposition home or self-care (01) | DRG 249 ==
LOC: M ED 10:41 → M ED INP 15:40 → M PCU 21:46
PROVIDERS: ADMIT Internal Medicine; ATTEND Internal Medicine
DX: K52.9 Noninfective gastroenteritis and colitis, unspecified (principal); E87.20 Acidosis, unspecified; K31.84 Gastroparesis; E11.43 Type 2 diabetes mellitus with diabetic autonomic (poly)neuropathy; E78.00 Pure hypercholesterolemia, unspecified; M54.2 Cervicalgia; G89.29 Other chronic pain; G43.909 Migraine, unspecified, not intractable, without status migrainosus; Z90.49 Acquired absence of other specified parts of digestive tract; F17.210 Nicotine dependence, cigarettes, uncomplicated; Z79.82 Long term (current) use of aspirin; Z79.84 Long term (current) use of oral hypoglycemic drugs; Z79.899 Other long term (current) drug therapy